=== PATIENT | female | born 1980 | race Hispanic/Latino ===

== ENCOUNTER 2018-07-20 14:17 | Outpatient (CLI) | payer OTHER ==
--- NOTE | 2018-07-20 16:42 | ULT ---
DOPPLER VENOUS ULTRASOUND OF THE LEFT AND RIGHT LOWER EXTREMITY: 07/20/18 INDICATION: Pain within the left lower extremity and right lower extremity. TECHNIQUE: Varma scale, color doppler and vascular duplex with spectral analysis was performed of the deep venous structures of both lower extremities. Common femoral vein, superficial femoral vein, popliteal vein, posterior tibial vein, proximal greater saphenous and profunda veins were assessed. FINDINGS: Normal compression, flow, and augmentation seen within the deep venous structures of both lower extre mities. IMPRESSION: No evidence of DVT within both lower extremities. POS: [facility]
== END 2018-07-20 14:18 | disposition home or self-care (01) ==
LOC: SCSULT 14:17
PROVIDERS: ATTEND Family Medicine
DX: M79.669 Pain in unspecified lower leg (principal); R89.9 Unspecified abnormal finding in specimens from other organs, systems and tissues
CPT/HCPCS: 93970

== ENCOUNTER 2018-08-04 15:32 | Outpatient (CLI) | payer OTHER ==
--- NOTE | 2018-08-04 18:45 | ULT ---
PELVIC ULTRASOUND: 08/04/18 COMPARISON: None. HISTORY: Pelvic pain and hard palpable area in the midline. TECHNIQUE: Multiplanar cardona scale and color doppler images were obtained in a transabdominal pelvic ultrasound. Spectral analysis of the doppler waveform of the left ovary was performed. A transvaginal exam was no t performed as the patient has not been sexually active. FINDINGS: The uterus is enlarged. There are two isoechoic lesions within the uterus which may represent fibroid s. The largest measures 6.5 cm in greatest dimension. The endometrial stripe could not be seen. No free fluid in seen in the pelvis. The right ovary cannot be visualized and the left ovary is dale l in size and appearance and demonstrates normal internal flow. IMPRESSION: Enlarged fibroid uterus. POS: [facility]
== END 2018-08-04 15:33 | disposition home or self-care (01) ==
LOC: BICULT 15:32
PROVIDERS: ATTEND Family Medicine
DX: R10.2 Pelvic and perineal pain (principal); D25.9 Leiomyoma of uterus, unspecified
CPT/HCPCS: 76856; 93976

== ENCOUNTER 2018-10-11 08:16 | Outpatient (CLI) | payer OTHER ==
[2018-10-11] MEDS ORDERED: Gadobenate Dimeglumine 529 MG/1 ML (20ML VIAL) ONE (10:39)
--- NOTE | 2018-10-11 11:12 | MRI ---
MRI PELVIS WITH AND WITHOUT CONTRAST: INDICATIONS: History of fibroid uterus. COMPARISON: Pelvic ultrasound dated 08/04/2018. CONTRAST: The patient received 10 mL of MultiHance for the examination. FINDINGS: There are multiple fibroids involving the uterus. The largest is seen within the intramural region o f the fundus, measuring 6.4 x 9 x 6.7 cm in its greatest craniocaudad, mediolateral, and AP dimension s, respectively. The second largest fibroid is seen within the left aspect of the uterine body, katlin uring 5.6 x 6 x 6.1 cm in its greatest craniocaudad, AP, and mediolateral dimensions, respectively. There are other additional uterine fibroids present. The fibroids heterogeneously enhance to differe nt degrees. The visualized junctional zone is within normal limits. The endometrial canal is heavil y distorted by the presence of prominent intramural fibroids. The visualized aspects of the cervix a ppear within normal limits. The adnexa appear within normal limits. Small, peripherally enhancing f ollicles are seen within the right adnexa. No free fluid if evident. No enlarged lymph nodes are pr esent. No bone marrow signal abnormality is grossly evident. The visualized aspects of the bladder appear within normal limits. IMPRESSION: Multiple fibroids seen within the uterus, heavily distorting the endometrial canal. POS: [facility]
== END 2018-10-11 08:17 | disposition home or self-care (01) ==
LOC: BICMRI 08:16
PROVIDERS: ATTEND Student in an Organized Health Care Education/Training Program
DX: D25.9 Leiomyoma of uterus, unspecified (principal)
CPT/HCPCS: 72197; A9579

== ENCOUNTER 2018-11-29 07:25 | Day surgery (SDC) | payer OTHER ==
[2018-11-28 16:33] VITALS: BMI 22.2
[2018-11-28 17:19] LABS: Hemoglobin 10.7 g/dL (12.0-16.0); Mean Corpuscular HGB CONC 32.4 g/dL (32.0-36.0); Mean Corpuscular Hemoglobin 28.7 pg (27.0-31.0); Mean Corpuscular Volume 88.8 fL (78.0-98.0); Mean Platelet Volume 7.9 fL (7.4-10.4); Platelet Count 267 thou/uL (130-400); RBC Distribution Width 12.8 % (11.5-14.5); Red Blood Cell (RBC) Count 3.73 mill/uL (4.20-5.40); White Blood Cell (WBC) Count 6.1 thou/uL (4.8-10.8)
[2018-11-28 17:27] LABS: BHCG - Serum Negative (NEGATIVE); Pregs Control Background? CLEAR/WHITE (CLR/WHITE); Pregs Control Bar Appear? YES (CONTROL BAR)
[2018-11-29] MEDS ORDERED: Gentamicin 80 MG/2 ML VIAL ONE (07:57)
[2018-11-29] MEDS ORDERED: Gabapentin 300 MG CAP ONE (07:57)
[2018-11-29] MEDS ORDERED: CeleCOXIB 100 MG CAP ONE (08:00)
[2018-11-29] MEDS ORDERED: Famotidine/PF 20 mg/2ml Vial ONE (08:00)
[2018-11-29] MEDS ORDERED: Scopolamine 1.5 mg/72 hour Patch ONE ×2 (08:01→08:03)
[2018-11-29] MEDS ORDERED: Tranexamic Acid 1,000 MG/10 ML VIAL ONE (08:41)
[2018-11-29] MEDS ORDERED: Sodium Chloride 0.9% 100 ML ONE (08:45)
[2018-11-29] MEDS ORDERED: Misoprostol 200 MCG TAB ONE (10:10)
[2018-11-29] MEDS ORDERED: Fentanyl 250 MCG/5 ML VIAL ONE (10:18)
[2018-11-29] MEDS ORDERED: Bupivacaine HCl 0.5%/Epinephrine 1:200,000/PF 30 ml Vial ONE (10:29)
[2018-11-29] MEDS ORDERED: Ondansetron PF 4 MG/2 ML Vial ONE (12:30)
[2018-11-29] MEDS ORDERED: PROPOFOL 200 MG/20 ML VIAL ONE (12:30)
[2018-11-29] MEDS ORDERED: Dexamethasone 20 MG/5 ML VIAL ONE (12:30)
[2018-11-29] MEDS ORDERED: ePHEDrine 50 MG/ML VIAL ONE (12:30)
[2018-11-29] MEDS ORDERED: Glycopyrrolate 0.2 MG/ML 5 ML SYRINGE ONE (12:30)
[2018-11-29] MEDS ORDERED: Lidocaine 1% PF 5 ML VIAL ONE (12:30)
[2018-11-29] MEDS ORDERED: PHENYLEPHRINE-NS 100 MCG/ML 10 ML SYRINGE ONE (12:30)
[2018-11-29] MEDS ORDERED: Rocuronium Bromide 10 MG/ML (10ML VIAL) ONE (12:30)
[2018-11-29] MEDS ORDERED: diphenhydrAMINE 25 MG CAP PO PRN (15:59)
[2018-11-29] MEDS ORDERED: HYDROcodone/Acetaminophen 5/325 mg Tablet PO PRN ×2 (15:59)
[2018-11-29] MEDS ORDERED: Zolpidem Tartrate 5 MG TAB PO PRN (15:59)
[2018-11-29] MEDS ORDERED: Ondansetron PF 4 MG/2 ML Vial IVP PRN (15:59)
[2018-11-29] MEDS ORDERED: Bisacodyl 10 MG SUPP PR PRN (15:59)
[2018-11-29] MEDS ORDERED: Promethazine HCl 25 MG/ML VIAL IM PRN ×2 (15:59→16:22)
[2018-11-29] MEDS ORDERED: Morphine 4 MG/ML VIAL SLOW IVP PRN (15:59)
[2018-11-29] MEDS ORDERED: Acetaminophen 325 MG TAB PO PRN (15:59)
[2018-11-29] MEDS ORDERED: Simethicone Chewable 80 MG TAB PO PRN (15:59)
[2018-11-29] MEDS ORDERED: Promethazine HCl 25 MG/ML VIAL SLOW IVP PRN (16:22)
[2018-11-29] MEDS ORDERED: Ondansetron HCl/PF 4 MG/2 ML Vial IVP PRN (16:22)
[2018-11-29] MEDS ORDERED: Fentanyl 100 MCG/2 ML VIAL ONE (16:30)
[2018-11-29] MEDS: Ketorolac Tromethamine 30 MG/ML VIAL IVP SCH ×2 (18:15→23:51)
[2018-11-29] MEDS: Sodium Chloride 0.9% 1,000 ML IV SCH ×2 (18:19→18:55)
--- NOTE | 2018-11-29 18:30 | OP ---
DATE OF PROCEDURE: 11/29/2018 PREOPERATIVE DIAGNOSES: 1. Uterine fibroids. 2. Menorrhagia. 3. Pelvic pain. POSTOPERATIVE DIAGNOSES: 1. Uterine fibroids. 2. Menorrhagia. 3. Pelvic pain. PROCEDURE: Robotic-assisted laparoscopic myomectomy. CEMENT MIXER SURGEONS: 1. Yvette Hernandez MD. 2. Ani Wakefield PA-C. ANESTHESIA: General endotracheal. ESTIMATED BLOOD LOSS: 200 mL. IVF: 2800 mL crystalloid. URINE OUTPUT: 450 mL clear urine. COMPLICATIONS: None. DRAINS: Viveros catheter. PATHOLOGY: Uterine fibroids. FINDINGS: On exam under anesthesia, a mobile 16-week size uterus with a palpable fibroid in the lower uterine segment anteriorly and cervix deviated to the left. On intraabdominal survey, there were multiple subserosal uterine fibroids. There was a dominant fibroid that was resected that was anterior and fundal approximately 9 cm as well as at the anterior lower uterine segment fibroid that was removed approximately 6 cm and additional 6 fibroids that were removed and that were anywhere from 1 to 4 cm. Following myomectomy, hemostasis of the resection sites was excellent. Tisseel was placed over these sites and there were approximately 4 additional subserosal fibroids that were not removed during the dissection, one involved the utero-ovarian ligament on the right side was not felt to be safe. The small fibroids were all less than 2 cm, the one involving the utero-ovarian ligament on the left side was more like 4 to 5 cm. The fibroids were removed completely in a contained extraction manner using extracorporeal morcellation with the Yeison bag. OPERATIVE TECHNIQUE: The patient was taken to the operating room, where general anesthesia was obtained without difficulty. The patient was prepped and draped in sterile fashion in the dorsal lithotomy position. A Viveros catheter was placed in the bladder. Speculum was placed in the vagina until the lip of the cervix was grasped with single-tooth tenaculum. The uterus then sounded to 9 cm and ALVAREZ manipulator was assembled with 9 cm tip and the cervix was dilated progressively with Torres dilators and the ALVAREZ tip was inserted into the uterine fundus. The tip balloon was inflated. The speculum and tenaculum were removed out of the vagina. The legs were placed in low lithotomy. Attention was turned to the abdomen. A 12 mm skin incision was made in the upper aspect of the umbilicus after infiltrating with 0.5% Marcaine with epi. The Veress needle was passed into the abdomen, noting an opening pressure of 0 mmHg. Pneumoperitoneum was obtained without difficulty. The Veress needle was removed and the 12 mm trocar was advanced into the abdomen and confirmed placement with a robotic 12 mm 0 degree camera. Trendelenburg was obtained and the large fibroid uterus was noted in the pelvis. Decision was made to proceed with laparoscopic approach. The umbilical incision was extended cephalad to approximately 2.5 cm completely including the fascial incision and the trocar was removed and the mini Yeison was placed into the incision subfascially and cinched down. The robotic camera trocar was placed into the Mini GelPOINT and it was fixed atop of the Yeison retractor and pneumoperitoneum was obtained. The camera was advanced into the abdomen and additional Trendelenburg was obtained. The robotic ports were mapped out as the third arm had planned to be used. The right lower quadrant and right upper quadrant 8 mm robotic trocars were placed under direct visualization after infiltrating with 0.5% Marcaine with epi. A left lower quadrant robotic trocar was also placed after infiltrated with 0.5% Marcaine with epi under direct visualization. The left upper quadrant port was placed that was 11 mm for an physician assistant port under direct visualization after infiltrating with anesthetic. At that time, the robot was docked. The left robotic arm contained a [place] bipolar. Number one right upper quadrant robotic arm contained monopolar scissors and the third arm on the right lower quadrant contained laparoscopic tenaculum. The surgeon consulted to control. The fibroids were examined and plans were made regarding incision choice. A vertical incision was made on the fundus of the uterus. There were multiple fibroids present in this area. Initially, large 9 cm fibroid was encountered. Once the capsule was entered into, the tenaculum was placed on the fibroid and this was used to stabilize the fibroid close to the anterior abdominal wall. The scissors and the [place] as well as the physician assistant blunt grasper were used to then bluntly dissect off the capsular fibers of the myometrium to the fibroid. Hemostasis was carefully achieved with [place] bipolar as well as the scissors on cautery. Secondary to the size of the fibroid, this did require a large incision to accommodate the fibroid delivery. Once the base of the fibroid was met, the fibers were cauterized and then transected with the scissors for hemostasis and dissection of this fibroid took approximately 20 minutes. This fibroid was placed into the upper abdomen at that time and suction cooker helper was used to locate identify any bleeding vessels and achieve hemostasis with [place] bipolar. An additional fibroid was present to the right side of that incision and this was easily identifiable with pushing and spreading with the scissors and the [place] bipolar. Once the capsule had been met, the tenaculum was placed underneath the incision and the incision did not have to be extended and with traction on the tenaculum and blunt dissection with the scissors and [place], this fibroid delivered easily. This was also approximately a 4 cm fibroid. This was also placed in the left pericolic gutter next to the additional fibroid. There was also one fibroid more fundal and to the left of the incision. The incision was extended over to the left side at this point to locate and identify the capsule of this fibroid with the scissors on monopolar cut. The tenaculum was placed on this fibroid and again using the blunt dissection method and then cauterizing for hemostasis at the base, this fibroid was removed and placed into the right pericolic gutters with the others. The incision was again irrigated and suctioned. Hemostasis was achieved and the scissors were traded out for the needle dedicated local truck driver and the tenaculum was traded out for a ProGrasp forceps. An 18 cm 2-0 V-Loc suture was passed into the abdomen and the myometrial bed was closed in a layered fashion ensuring that deep pockets where fibroids were present were closed completely and ensuring hemostasis along the way and the serosa was then closed in an end-to-end fashion with a V-Loc suture as well. The needle was removed out of the abdomen. An additional V-Loc suture was passed into the abdomen and this was used to tag the three fibroids that had been removed and that needle was left inside the abdomen and tacked on the pericolic gutter. The incision was noted to be hemostatic. The uterus was then manipulated and additional fibroids were identified. There was what appeared to be a large fibroid posteriorly and this fibroid did involve intimately the utero-ovarian ligament. It was felt that there would be excessive bleeding secondary to the proximity of the vasculature and the protrusion of this fibroid into the utero-ovarian ligament that this was not necessarily resectable at this time. Anteriorly, there were several fibroids in the lower uterine segment, and therefore, decision was made to remove those and a transverse incision was made over the lower uterine segment with the scissors on cut and the initial fibroid was identified once the capsule had been entered into. At this point, the scissors and the tenaculum had been reinserted into the abdomen and arms one and three. Tenaculum was placed on the fibroid and allowed to elevate and stabilize the fibroid while the scissors and [place] bipolar were used to bluntly dissect off the myometrial fibers off the fibroid. The fibroid was very large approximately 6 cm and once the base was met, the base was cauterized with the [place] and transected with scissors and this fibroid was then also placed in the anterior cul-de-sac and additional fibroid was present caudally and the myometrium was spread apart. The fibroid was located. The tenaculum was placed on the fibroid and the fibroid was easily shelled out. This was approximately a 4 cm fibroid in the lower uterine segment just distal to the large one I had just removed. With blunt dissection, this one was easily shelled out and placed next to the other large one. There was also one more fibroid that was removed at the right most aspect of the transverse incision in the lower uterine segment. The incision was extended approximately 2 cm and the fibroid was shelled out while stabilizing the fibroid with the tenaculum using blunt dissection and then cauterizing the base. At that time, the needle dedicated local truck driver was traded out for the scissors and the fibroids were placed onto the V-Loc suture and irrigation was performed of the fibroid bed and hemostasis was achieved with [place]. At that time, one of the assistants instruments malfunctioned and stopped working inside the abdomen, which was a grasper with teeth. The grasper would no longer close even with placing pressure on the jaws to close it. The grasper was eventually removed through the physician assistant port, however, was unable to be fully closed. The incision did not have to be extended and the trocar did remain intact during this removal. At that time, then hemostasis was noted of the myometrial bed. The additional 2-0 V-Loc 18 cm suture was placed into the abdomen and that defect in the myometrium was closed in two layers. The endometrium was visible there. It was not entered into, but the entire full thickness of the myometrium was disturbed during this process. The endometrial was carefully reapproximated as well as the myometrium just next to the endometrium in the initial layer. The 2nd layer was the full-thickness myometrium and the final layer was a serosal layer in an end-to-end fashion achieving excellent hemostasis. The needle was removed out of the abdomen. Copious irrigation and suction were performed of the pelvis. All clot and blood was removed as feasibly possible and the incisions were both noted to be hemostatic. At that time, decision was made to leave the other remaining fibroids as these were small and not causing the patient any problems as they were subserosal and 2 cm or less with the exception of the fibroid that was present at the utero-ovarian ligament. The Tisseel was then placed over the incisions and at that time, the Yeison bag was brought into the pelvis and a string of fibroids was also brought into the pelvis. The bag was opened and the fibroids were delivered into the bag and then the bag was delivered through the Mini GelPOINT. The robot was undocked and all instruments were removed out of the abdomen and the bag was brought up through the Yeison and the fibroids were morcellated out of the Mini GelPOINT in a contained fashion and took approximately 35 minutes and these were sent for final pathology. The Yeison was removed out of the abdomen and the fascia was reapproximated with a 0 Vicryl in a running fashion. The skin was closed with 4-0 Monocryl in a subcuticular fashion. Dermabond was applied. The ALVAREZ manipulator was removed out of the uterus and the cervix was examined. There was no active bleeding from the cervix. There was scant blood present in the vaginal vault. All instruments were removed out of the vagina. The patient tolerated the procedure well. Sponge, lap, and needle counts correct x2. The patient was taken to recovery in stable condition. The patient received Ancef 2 g prior to the procedure. Job ID: [id number]
[2018-11-30] MEDS: Ketorolac Tromethamine 30 MG/ML VIAL IVP SCH (05:47)
[2018-11-30 06:23] LABS: Mean Corpuscular HGB CONC 31.8 g/dL (32.0-36.0); Mean Corpuscular Volume 91.3 fL (78.0-98.0); Mean Platelet Volume 8.1 fL (7.4-10.4); Platelet Count 267 thou/uL (130-400); RBC Distribution Width 13.5 % (11.5-14.5); White Blood Cell (WBC) Count 10.4 thou/uL (4.8-10.8)
--- NOTE | 2018-11-30 07:48 | PDOC.EVN ---
Event Note - Event Note Event Note: POD1 S: No complaints, pain controlled, has ambulated, due to void and jie reg diet. No N/V. O: VSSAF NAD Unlabored respirations Abd soft/tamar ttp/ND, inc c/d/i Ext no e/c/c Hgb 9.0 postop A/P POD1 sp RAmyomectomy Doing well, await void and diet prior to DC. Switch to po pain meds. Ambulate. Expect DC today. FU 2 wk. Cont MVI with Iron for acute on chronic anemia, iron deficiency from blood loss.
[2018-11-30 08:15] VITALS: TEMP 98.3
[2018-11-30 09:23] VITALS: BP 97/52
[2018-12-04] MEDS ORDERED: Ibuprofen 800 MG TAB PO SCH (22:00)
== END 2018-11-30 10:20 | disposition home or self-care (01) ==
LOC: SDC 07:25 → UNDOADMOB 18:05 → 3SE 18:05 → UNDODISOB 11-30 10:20 → SDC 11-30 10:20
PROVIDERS: ATTEND Student in an Organized Health Care Education/Training Program
PROC: 0UB94ZZ Excision of Uterus, Percutaneous Endoscopic Approach (ICD-10-PCS; principal; 2018-11-29)
DX: D25.2 Subserosal leiomyoma of uterus (principal); Z79.1 Long term (current) use of non-steroidal anti-inflammatories (NSAID)
CPT/HCPCS: 36415; 84703; 85027; 86850; 86900; 86901; 88305; 90471; 90686; G0008; J0670; J1100; J1580; J1885; J2001; J2270; J2405; J2704; J3010; J3490; J7050; S0028

== ENCOUNTER 2019-01-31 15:14 | Outpatient (CLI) | payer OTHER ==
--- NOTE | 2019-01-31 16:03 | ULT ---
US Thyroid STANDARD HISTORY: Thyroid nodule COMPARISON: 01/17/2016 exam. FINDINGS: Real-time imaging of the right and left lobes of the gland were performed. The right lobe m easures 1.2 x 1.7 x 4.7 cm. The left lobe 1.2 x 1.4 x 4.6 cm. There is a approximately 1 cm left lobe thyroid nodule present., This is definitely smaller as compar ed to the prior exam. It measured approximately 2 x 2.2 cm on the prior study. The cystic component of the nodule has decreased as compared to the prior study. IMPRESSION: Decreased size of the left lobe thyroid nodule.
== END 2019-01-31 15:15 | disposition home or self-care (01) ==
LOC: BICULT 15:14
PROVIDERS: ATTEND Physician Assistant
DX: E04.1 Nontoxic single thyroid nodule (principal)
CPT/HCPCS: 76536